=== PATIENT | female | born 1965 | race American Indian/Alaskan Native ===

== ENCOUNTER 2016-09-20 06:16 | Day surgery (SDC) | payer BC ==
[2016-09-20] MEDS ORDERED: WATER FOR IRRIG STERILE IR ONE (07:17)
[2016-09-20] MEDS ORDERED: DIPRIVAN 10 MG/ML IV ONE ×2 (07:38→07:53)
--- NOTE | 2016-09-20 07:40 | Anesthesia Day of Surgery ---
Anesthesia Day of Surgery - Day of Surgery Patient Examined: Yes Patient H&P Reviewed: Yes Patient is NPO: Yes
--- NOTE | 2016-09-20 07:41 | Anesthesia Consultation ---
Anesthesia Consult and Med Hx Date of service: 09/20/16 - Airway Anesthetic Teeth Evaluation: Good ROM Head & Neck: Adequate Mental/Hyoid Distance: Adequate Mallampati Class: Class I Intubation Access Assessment: Probably Good - Pulmonary Exam CTA: Yes - Cardiac Exam Cardiac Exam: RRR - Pre-Operative Health Status ASA Pre-Surgery Classification: ASA3 - Pre-Anesthesia Comment Pre-Anesthesia Comments: sp lap band in 2011, here for evaluation for epigastric pain/ discomfort - Pulmonary Hx Smoking: No Hx Sleep Apnea: No (highly SHAHBAZ) - Cardiovascular System Hx Hypertension: Yes Hx Heart Attack/AMI: No - Central Nervous System Hx Seizures: No CVA: No - Gastrointestinal Hx Gastroesophageal Reflux Disease: No - Endocrine Hx Renal Disease: No Hx Liver Disease: No - Other Systems Hx Obesity: Yes - Additional Comments Anesthesia Medical History Comments: NAC
--- NOTE | 2016-09-20 07:41 | Discharge Summary ---
Providers - Providers Date of discharge: 09/20/16 Attending physician: UMBERTO LAMA Hospitalization Condition: Good Disposition: DISCHARGED TO HOME OR SELFCARE Core Measure Documentation - Palliative Care Palliative Care/ Comfort Measures: Not Applicable - Core Measures Any of the following diagnoses?: none Exam - Physical Exam Narrative exam: unchanged from pre-op h&p Plan Activity: no restrictions Diet: regular Follow up with: JULIET ROSARIO [Other] - 7 Days
--- NOTE | 2016-09-20 07:44 | Operative Report ---
Operative Report Operative Report: OPERATIVE REPORT - EGD DATE 09/20/16 SURGERY: Upper endoscopy. SURGEON: Rosy Soliz M.D. [employer]: n/a PRE OP DX:dyspepsia POST OP DX: normal banded gastric anatomy TYPE OF ANESTHESIA: MAC. ESTIMATED BLOOD LOSS: None. COMPLICATIONS: None. SPECIMENS REMOVED: None. FINDINGS: 1. normal gastric banded anatomy 2. normal esophagus, stomach and first portion of duodenum. INDICATIONS:INDICATION FOR PROCEDURE: Patient is a 51-year-old female with a long history of morbid obesity and gastric banding. She is planned to have her band removed and potentially conversion to another bariatric procedure and is here for preoperative planning EGD. PROCEDURE DETAILS: After consent was reviewed, patient was taken back to the operating room where patient was placed in the left lateral decubitus position and a bite block was placed in the mouth. After a time-out was called, MAC anesthesia was initiated. I then passed the endoscope into her oropharynx, into her esophagus, visualized the entire esophagus, which was all within normal limits. I then visualized the stomach and the first portion of the duodenum and there were no abnormalities I could clearly visualize. There was an expected narrowing at the proximal stomach where the band is externally compressing, it was easily traversed. I then retroflexed the scope in the stomach and visualized the underside of the banded portion of the stomach and I could see no signs band erosion. I then desufflated the stomach and removed the endoscope. Patient tolerated procedure well and was transferred to recovery room in good and stable condition.
[2016-09-20 08:37] VITALS: BP 155/94
[2016-09-20] MEDS ORDERED: NACL 0.9% 1000 ML 1,000 ML IV SCH (09:00)
== END 2016-09-20 06:17 | disposition home or self-care (01) ==
LOC: GIO 06:16
PROVIDERS: ATTEND Surgery
DX: R10.13 Epigastric pain (principal); I10 Essential (primary) hypertension; F32.9 Major depressive disorder, single episode, unspecified; G43.909 Migraine, unspecified, not intractable, without status migrainosus; K21.9 Gastro-esophageal reflux disease without esophagitis; E66.01 Morbid (severe) obesity due to excess calories; Z68.42 Body mass index [BMI] 45.0-49.9, adult; Z98.890 Other specified postprocedural states; Z98.84 Bariatric surgery status
CPT/HCPCS: 43235; 81025; J2704; J7030